=== PATIENT | male | born 1935 | race Caucasian/White ===

== ENCOUNTER → 2018-12-22 | Outpatient (CLI) | payer OTHER ==
[~2018-12-22] MED LIST: ALFUZOSIN HCL10 MG PO; CIPROFLOXACIN500 M1 PO; CLOTRIMAZOLE-BE15 GM TP; FLOMAX0.4 MG PO; FLUTICASONE PRO16 GM NS; VITAMIN D1000 UNI1 PO; ZOCOR 10 MG TAB10 MG PO
== END ==
LOC: NUC 08:20
DX: M85.89 Other specified disorders of bone density and structure, multiple sites (principal)

== ENCOUNTER 2020-02-15 10:40 | Emergency (ER) | payer OTHER ==
[~2020-02-15] VITALS: Ht 170.2 cm; Wt 72.6 kg
[2020-02-15] MEDS ORDERED: FINASTERIDE5 MG PO (11:25)
[2020-02-15] MEDS ORDERED: ZOCOR 20 MG TAB20 M1 PO (11:25)
--- NOTE | 2020-02-15 12:24 | EKG ---
[facility] [place] [address] ELECTROCARDIOGRAM REPORT Name: TRAE HILL Room #: [facility]#: [id number] Admission: 02/15/20 Attend Phys: Discharge: Date of : 39 Report #: [id number] THIS REPORT FOR: cc: Farhan Gonzalez Steven F. DO Santiago, Patrick MD [facility] ~ THIS REPORT FOR: //name// [facility] ED Test Date: 2020-02-15 Test Time: 11:38:24 Pat Name: TRAE HILL Department: Room: Gender: Chucking Lathe Operator: [facility] : 1935 Requested By: Edin Gregorio Order Number: [id number] MD: Jordi Dhaliwal Measurements Intervals Humphreys Rate: 61 P: 26 WI: 141 QRS: 1 QRSD: 92 T: 31 QT: 395 QTc: 398 Interpretive Statements NSR, artifacts Sinus rhythm Atrial premature complex Probable left atrial enlargement No previous ECG available for comparison Electronically Signed On 02-15-2020 12:24:46 [employer] SECRETARY by Jordi Dhaliwal [email or web address] <ELECTRONICALLY SIGNED> By: Jordi Dhaliwal MD, FACC 02/15/20 1224 37 37 Jordi Dhaliwal MD, [facility] /EPI
[2020-02-15 12:29] VITALS: BP 120/66
== END 2020-02-15 12:45 | disposition home or self-care (01) ==
LOC: ER 10:40
DX: R07.89 Other chest pain (principal); Z79.899 Other long term (current) drug therapy